=== PATIENT | male | born 1980 | race American Indian/Alaskan Native ===

== ENCOUNTER 2018-08-14 22:21 | Emergency (ER) | payer MEDICAID ==
[2018-08-14 22:31] VITALS: BP 103/70
--- NOTE | 2018-08-14 22:31 | Event Note ---
ED Screening Note ED Screening Note: pt presents with lower abd pain states it is difficult to pee no N/V no dysuria +frequency, but decreased output no testicular edema or pain no PMHx no allergies to meds +smoker non drinker +marijuana This initial assessment/diagnostic orders/clinical plan/treatment(s) is/are subject to change based on patients health status, clinical progression and re- assessment by fellow clinical providers in the ED. Further treatment and workup at subsequent clinical providers discretion. Patient/guardian urged not to elope from the ED as their condition may be serious if not clinically assessed and managed. Initial orders include: labs, UA, CT abd pelvis
[2018-08-14 23:00] LABS: Hemoglobin 14.2 gm/dl (11.8-15.2); Mean Corpuscular HGB Conc 35 % (32-34); Mean Corpuscular Volume 90 fl (84-94); Platelet Count 338 K/mm3 (140-440); Red Blood Count 4.55 M/mm3 (3.65-5.03); Red Cell Distribution Width 13.7 % (13.2-15.2)
[2018-08-14 23:07] LABS: Bilirubin,Urine NEG (Negative); Blood,Urine SM (Negative); Color,Urine Yellow (Yellow); Mucus,Urine FEW /HPF; Protein,Urine <15 mg/dL mg/dL (Negative); Urobilinogen,Urine < 2.0 mg/dL (<2.0)
[2018-08-14 23:19] LABS: Alanine Aminotransferase 22 units/L (7-56); Albumin 4.4 g/dL (3.9-5); BUN/Creatinine Ratio 8; Blood Urea Nitrogen 10 mg/dL (9-20); Calcium 9.5 mg/dL (8.4-10.2); Hemolysis Index 19
[2018-08-14 23:33] LABS: RBC Morphology Normal; Total Cells Counted 100
--- NOTE | 2018-08-15 00:41 | Cat Scan Report ---
PROCEDURE: CT ABDOMEN PELVIS W CON TECHNIQUE: Computerized axial tomography of the abdomen and pelvis was performed after the IV inject ion of iodinated nonionic contrast. CT DOSE LENGTH PRODUCT: 746.8 mGycm HISTORY: lower abd pain, difficulty urinating COMPARISONS: None . FINDINGS: Visualized lower thorax: No significant abnormality. Liver: Normal size and attenuation. Spleen: Normal size and attenuation. Gallbladder and biliary system: Normal. Pancreas: Normal. Adrenals: Normal. Kidneys: Normal. GI tract: No obstruction. No ileus or enteritis. The cecum, appendix and colon are normal. . Lymph nodes and mesentery: Normal. Vasculature: Normal.. Bladder: The partially filled bladder is normal.. Reproductive organs: No pelvic masses. Peritoneum: No free fluid. Musculoskeletal structures: No significant abnormality. Other: None . IMPRESSION: Normal examination of the abdomen and pelvis . This document is electronically signed by Nisha Russo DO., August 15 2018 12:39:54 AM ET
[2018-08-15] MEDS ORDERED: TORADOL IV ONE (02:06)
[2018-08-15] MEDS ORDERED: ZOFRAN IV ONE (02:06)
--- NOTE | 2018-08-15 02:28 | Emergency Department Report ---
ED Abdominal Pain HPI - General Chief Complaint: Abdominal Pain Stated Complaint: ABD PAIN Time Seen by Provider: 08/14/18 22:29 Source: patient Mode of arrival: Ambulatory Limitations: No Limitations - History of Present Illness Initial Comments: Patient is a 38-year-old -[place] male with the medical history who presents to the ED with complaint of acute onset persistent suprapubic abdominal pain with decreased urination for the last 2 days. Patient denies fever, chills, nausea, vomiting, hematuria, testicular pain, diarrhea, constipation, dizziness, low back pain, urinary urgency and frequency or dysuria. MD Complaint: abdominal pain (lower) -: Sudden, days(s) (2) Location: suprapubic Radiation: suprapubic Migration to: no migration Severity: moderate Severity scale (0 -10): 5 Quality: cramping, aching, sharp Consistency: constant Improves With: nothing Worsens With: nothing Associated Symptoms: denies other symptoms. denies: nausea, vomiting, diarrhea, fever, chills, constipation, dysuria, hematemesis, hematochezia, melena, h ematuria, syncope - Related Data Previous Rx's Medication Instructions Recorded Last Taken Type Ciprofloxacin HCl [Ciprofloxacin 500 mg PO Q12HR #20 tab 08/15/18 Unknown Rx TAB] Naproxen [Naprosyn] 500 mg PO Q12H PRN #20 tablet 08/15/18 Unknown Rx Tamsulosin [Flomax] 0.4 mg PO QDAY #7 cap 08/15/18 Unknown Rx traMADol [Ultram] 50 mg PO Q6HR PRN #12 tablet 08/15/18 Unknown Rx Allergies Allergy/AdvReac Type Severity Reaction Status Date / Time No Known Allergies Allergy Unverified 08/14/18 22:26 ED Review of Systems ROS: Stated complaint: ABD PAIN Other details as noted in HPI Comment: All other systems reviewed and negative Constitutional: denies: chills, fever Eyes: denies: eye pain, eye discharge, vision change ENT: denies: ear pain, throat pain Respiratory: denies: cough, shortness of breath, wheezing Cardiovascular: denies: chest pain, palpitations Endocrine: no symptoms reported Gastrointestinal: abdominal pain (diffuse lower). denies: nausea, diarrhea, constipation, hematemesis, hematochezia Genitourinary: other (decreased urination). denies: urgency, dysuria, frequency, hematuria, discharge, testicular pain, testicular mass Musculoskeletal: denies: back pain, joint swelling, arthralgia Skin: denies: rash, lesions Neurological: denies: headache, weakness, paresthesias Psychiatric: denies: anxiety, depression Hematological/Lymphatic: denies: easy bleeding, easy bruising ED Past Medical Hx - Past Medical History Previous Medical History?: No - Surgical History Past Surgical History?: Yes Additional Surgical History: Left arm - Social History Smoking Status: Current Every Day Smoker Substance Use Type: Marijuana - Medications Home Medications: Home Medications Medication Instructions Recorded Confirmed Last Taken Type Ciprofloxacin HCl [Ciprofloxacin 500 mg PO Q12HR #20 tab 08/15/18 Unknown Rx TAB] Naproxen [Naprosyn] 500 mg PO Q12H PRN #20 tablet 08/15/18 Unknown Rx Tamsulosin [Flomax] 0.4 mg PO QDAY #7 cap 08/15/18 Unknown Rx traMADol [Ultram] 50 mg PO Q6HR PRN #12 tablet 08/15/18 Unknown Rx ED Physical Exam - General Limitations: No Limitations General appearance: alert, in no apparent distress - Head Head exam: Present: atraumatic, normocephalic, normal inspection - Eye Eye exam: Present: normal appearance, PERRL, EOMI. Absent: scleral icterus, conjunctival injection, nystagmus - ENT ENT exam: Present: normal exam, normal orophraynx, mucous membranes moist, TM's normal bilaterally, normal external ear exam - Neck Neck exam: Present: normal inspection, full ROM. Absent: tenderness, meningismus, lymphadenopathy, thyromegaly - Respiratory Respiratory exam: Present: normal lung sounds bilaterally. Absent: respiratory distress, wheezes, rales, chest wall tenderness, accessory muscle use, decreased breath sounds - Cardiovascular Cardiovascular Exam: Present: regular rate, normal rhythm, normal heart sounds. Absent: systolic murmur, diastolic murmur, rubs, gallop - GI/Abdominal GI/Abdominal exam: Present: soft, normal bowel sounds, hyperactive bowel sounds. Absent: tenderness, guarding, hypoactive bowel sounds, organomegaly - Rectal Rectal exam: Present: deferred - exam: Present: normal inspection. Absent: testicular tenderness, urethral discharge, scrotal swelling, vertical testicular lie, circumcision - Extremities Exam Extremities exam: Present: normal inspection, full ROM, normal capillary refill - Back Exam Back exam: Present: normal inspection, full ROM. Absent: tenderness, CVA tenderness (R), CVA tenderness (L), muscle spasm, paraspinal tenderness, vertebral tenderness - Neurological Exam Neurological exam: Present: alert, oriented X3, CN II-XII intact, normal gait, reflexes normal - Psychiatric Psychiatric exam: Present: normal affect, normal mood - Skin Skin exam: Present: warm, dry, intact, normal color. Absent: rash ED Course Vital Signs 08/14/18 22:29 Temperature 97.7 F Pulse Rate 80 Respiratory 18 Rate Blood Pressure 103/70 [Left] O2 Sat by Pulse 100 Oximetry - Reevaluation(s) Reevaluation #1: 08/15/18 02:28 Patient is alert and oriented 3 and is not in distress with normal vital signs. Lab test results are reviewed and are unremarkable including urinalysis. Abdomen pelvis CT scan with contrast shows no acute abdomen or pelvis pathology. Patient was treated for pain and ED and on reevaluation, patient's pain is well controlled and patient is sent home on medications for pain, and empirically treated for acute cystitis given the fact that one of his complaints and was increased urination and discomfort with urination. Patient was referred to the urologist Dr. Meneses for follow-up in the outpatient for further evaluation. Patient advised to return to the ED immediately if symptoms get worse. ED Medical Decision Making - Lab Data Result diagrams: 08/14/18 22:50 08/14/18 22:50 - Radiology Data Radiology results: report reviewed, image reviewed Abdomen pelvis CT scan w/contrast: No acute abdomen or pelvis pathology - Medical Decision Making Patient is alert and oriented 3 and is not in distress with normal vital signs. Lab test results are reviewed and are unremarkable including urinalysis. Abdomen pelvis CT scan with contrast shows no acute abdomen or pelvis pathology. Patient was treated for pain and ED and on reevaluation, patient's pain is well controlled and patient is sent home on medications for pain, and empir ically treated for acute cystitis given the fact that one of his complaints and was increased urination and discomfort with urination. Patient was referred to the urologist Dr. Meneses for follow-up in the outpatient for further evaluation. Patient advised to return to the ED immediately if symptoms get worse. - Differential Diagnosis Abdominal pain; pelvic pain; Cystitis Critical care attestation.: If time is entered above; I have spent that time in minutes in the direct care of this critically ill patient, excluding procedure time. ED Disposition Clinical Impression: Abdominal pain Qualifiers: Abdominal location: lower abdomen, unspecified Qualified Code(s): R10.30 - Lower abdominal pain, unspecified Acute cystitis Qualifiers: Hematuria presence: without hematuria Qualified Code(s): N30.00 - Acute cystitis without hematuria Disposition: TO HOME OR SELFCARE Is pt being admited?: No Does the pt Need Aspirin: No Condition: Stable Instructions: Urinary Tract Infection in Men (ED), Acute Abdominal Pain (ED) Additional Instructions: Take medications with food, drink plenty of fluids and follow-up with Dr. Meneses urologist in the next 5-7 days for reevaluation. Return to the ED immediately if symptoms get worse. Prescriptions: Ciprofloxacin HCl [Ciprofloxacin TAB] 500 mg PO Q12HR #20 tab Tamsulosin [Flomax] 0.4 mg PO QDAY #7 cap Naproxen [Naprosyn] 500 mg PO Q12H PRN #20 tablet PRN Reason: Pain , Severe (7-10) traMADol [Ultram] 50 mg PO Q6HR PRN #12 tablet PRN Reason: Pain Referrals: ALEX WALKER MD [Primary Care Provider] - 3-5 Days Time of Disposition: 02:32 Print Language: HUNGARIAN
== END 2018-08-15 03:09 | disposition home or self-care (01) ==
LOC: ED 22:21
DX: N30.00 Acute cystitis without hematuria (principal); F17.200 Nicotine dependence, unspecified, uncomplicated; F12.10 Cannabis abuse, uncomplicated
CPT/HCPCS: 36415; 74177; 80053; 81001; 83690; 85007; 85025; 96374; 96375; 99284; J1885; J2405; Q9967